=== PATIENT | female | born 1945 | race Caucasian/White ===

== ENCOUNTER 2024-12-11 00:51 | Emergency (ER) | payer SELFPAY ==
[~2024-12-11] VITALS: Ht 162.6 cm; Wt 68.0 kg
[2024-12-11 01:03] VITALS: O2SAT 98
[2024-12-11 02:45] VITALS: BP 197/101; PULSE 78; RESP 16; TEMP 36.7; O2SAT 97
== END 2024-12-11 02:40 | disposition home or self-care (01) ==
LOC: ER 00:51
DX: T73.3XXA Exhaustion due to excessive exertion, initial encounter (principal); R42 Dizziness and giddiness; E11.9 Type 2 diabetes mellitus without complications; I11.0 Hypertensive heart disease with heart failure; I50.9 Heart failure, unspecified; Z88.5 Allergy status to narcotic agent; X58.XXXA Exposure to other specified factors, initial encounter
CPT/HCPCS: 93005; 99283